=== PATIENT | female | born 1955 | race Caucasian/White ===

== ENCOUNTER → 2025-03-21 | Outpatient (CLI) | payer MEDICARE, OTHER, SELFPAY ==
--- NOTE | 2025-03-21 07:38 | ECHOD_ITS ---
Reason For Study Reason For Study: MURMUR Procedure This was a 2D Doppler, Color Flow transthoracic echocardiogram. Exam performed in department. Left Ventricle Normal LV size. Left ventricular systolic function is normal. The left ventricular ejection fraction is 65 %. Stage 1 diastolic dysfunction. No regional wall motion abnormalities noted. Right Ventricle Normal RV size. Normal systolic function. Atria Normal left atrium. Normal right atrium. Patent foramen ovale. Hypermobile atrial septum. Mitral Valve Normal mitral valve. Tricuspid Valve Normal tricuspid valve. Aortic Valve Trisinus/trileaflet aortic valve. Mild focal aortic valve calcification. Great Vessels Normal aortic root. The pulmonary artery is normal size. Inferior vena cava collapse with respiration. Pericardium/Pleural No pericardial effusion. Medication 22 gauge I.V. with prn adaptor inserted into right arm. Performed a rapid injection of agitated mix of 9 cc saline and 1cc air to assess for atrial septal defect. MMode/2D Measurements & Calculations LVIDd: 5.3 cm IVSd: 1.0 cm Ao root diam: 3.4 cm LVIDs: 3.8 cm LVPWd: 1.0 cm RVDd: 3.3 cm FS: 29.2 % LAV(MOD-bp): 88.8 ml LVAd ap4: 33.9 cm2 SV(MOD-sp4): 78.1 ml LAV(MOD-bp) Indexed: 41.1 ml/m2 LVLd ap4: 8.0 cm SI(MOD-sp4): 36.2 ml/m2 LAV(MOD-sp2): 78.3 ml EDV(MOD-sp4): 116.9 ml LAV(MOD-sp4): 75.5 ml EDV(sp4-el): 122.3 ml LVAs ap4: 17.0 cm2 LVLs ap4: 6.4 cm ESV(MOD-sp4): 38.8 ml ESV(sp4-el): 38.5 ml EF(MOD-sp4): 66.8 % EF(sp4-el): 68.5 % SV(sp4-el): 83.8 ml LA A4 area: 21.3 cm2 LA dimension(2D): 4.0 cm RA A4 area: 11.9 cm2 TAPSE: 2.5 cm Time Measurements MV dec time: 0.22 sec Doppler Measurements & Calculations MV E max mark: 80.6 cm/sec Lat Peak E' Mark: 10.3 cm/sec Med Peak E' Mark: 7.6 cm/sec MV A max mark: 87.8 cm/sec E/E' lat: 7.8 E/E' med: 10.6 MV E/A: 0.92 MV V2 max: 104.8 cm/sec MV P1/2t max mark: 92.2 cm/sec Ao V2 max: 166.5 cm/sec MV max P.4 mmHg MV P1/2t: 53.0 msec Ao max P.1 mmHg MV V2 mean: 55.9 cm/sec Ao V2 mean: 118.4 cm/sec MV mean P.5 mmHg MV dec slope: 509.7 cm/sec2 Ao mean P.3 mmHg MV V2 VTI: 29.1 cm MVA(P1/2t): 4.2 cm2 Ao V2 VTI: 42.6 cm AV (velocity ratio): 0.46 LV V1 max: 79.7 cm/sec PA V2 max: 112.8 cm/sec PI end-d mark: 107.7 cm/sec LV V1 max P.5 mmHg PA V2 mean: 78.6 cm/sec LV V1 mean P.5 mmHg PA V2 VTI: 27.2 cm PI dec slope: 149.0 cm/sec2 LV V1 mean: 58.4 cm/sec LV V1 VTI: 19.6 cm TR max mark: 229.6 cm/sec TR max P.1 mmHg ECHO/Echo Complete Interpretation Summary Normal LV size. Left ventricular systolic function is normal. The left ventricular ejection fraction is 65 %. Stage 1 diastolic dysfunction. Patent foramen ovale. Mild focal aortic valve calcification. Hypermobile atrial septum. Ordering Physician: Lorelei Cohen Referring Physician: Lorelei Cohen Performed By: Shauna Dougherty RDCS, RVT
--- OUTSIDE RECORDS SUMMARY | 2025-03-21 07:45 | XMS RPT_ITS | CCD ---
Author Organization [facility] Care Team Providers Care Supervisor [employer]dered [employer] Name Role Phone CARMEN JON DO Primary Care Physician [phone] Guy PT, Natali Unavailable Unavailable DONTRELL ARANDA, CARMEN Primary Care Unavailable DONTRELL ARANDA, CARMEN Attending Unavailable CARMEN JON DO Attending Unavailable CARMEN JON DO Primary Care Unavailable ELISEO ARANDA, DR STRATTON Primary Care Physician [phone] ELISEO ARANDA, DR STRATTON Attending Unavailable ELISEO ARANDA, DR STRATTON Primary Care Unavailable Viral Gomes Attending Unavailable Viral Gomes Primary Care Unavailable Viral Gomes Referring Unavailable Viral Gomes Attending Unavailable Viral Gomes Primary Care Unavailable Allergies Allergy Classification Reported Allergen(s) Allergy Type Date of Onset Reaction(s) Facility (2 sources) Adhesive Tape Allergy to substance Eruption of skin (disorder) [facility] Medications Current Medications Medication Drug Class(es) Dates Sig (Normalized) Sig (Original) acetaminophen 500 mg oral tablet (2 sources) Start: 05-26-2021 End: 06-09-2021 take 1 tablet by mouth once daily acetaminophen 500 mg oral tablet Dose : 1,000 mg = 2 tab(s), Oral, TID, PRN as needed for pain, not to exceed 3000 mg/day, # 100 tab(s), 0 Refill(s), 06/09/21 6:44:00 EDT, [facility] 164, cm, 05/25/21 14:48:00 EDT, Height, kg, 05/25/21 14:48:00 EDT, Dosing Weight Start Date: 05/26/21 Stop Date: 06/09/21 Status: Ordered Acidophilus Probiotic Blend oral capsule (4 sources) Start: 02-15-2019 take 1 capsule by mouth once daily Acidophilus Probiotic Blend oral capsule Dose = 1 cap(s), Oral, qDay, 0 Refill(s) Start Date: 02/15/19 Status: Ordered Repeat number: 1 Start: 02-15-2019 take 1 capsule by [facility] once daily Acidophilus Probiotic Blend oral capsule Dose = 1 cap(s), Oral, qDay, 0 Refill(s) Start Date: 02/15/19 Status: Ordered albuterol MDI (90 mcg/inh) CFC free inhalation aerosol (1 source) Start: 08-15-2024 take 2 puff(s) by inhalation every four hours as needed for wheezing albuterol MDI (90 mcg/inh) CFC free inhalation aerosol 2 puff(s), Inhalation, q4h, PRN as needed for wheezing, # 8.5 gram(s), 0 Refill(s), Pharmacy: [facility]/pharmacy #[id number], Acute bronchitis, 164.5, cm, 08/15/24 13:36:00 EST, Height, kg, 08/15/24 13:36:00 EST, Dosing Weight Start Date: 08/15/24 Status: Ordered Quantity: 8.5 Unit: g Repeat number: 1 Indications: Acute bronchitis, unspecified; ascorbic acid 500 mg oral tablet (2 sources) Vitamin C Start: 02-15-2019 Vitamin C 500 mg oral tablet Dose : 500 mg = 1 tab(s), Oral, qDay, # 30 tab(s), 0 Refill(s) Start Date: 02/15/19 Status: Ordered aspirin 81 mg oral tablet (4 sources) Platelet Aggregation Inhibitor, Nonsteroidal Anti-inflammatory Drug Start: 05-26-2021 take 1 tablet by mouth twice daily at mealtime aspirin Dose : 81 mg = 1 tab(s), Oral, BIDM, Take 81 mg aspirin twice daily with food for 4 weeks postoperatively for DVT prophylaxis, 0 Refill(s) Start Date: 05/26/21 Status: Ordered Cranberry preparation (1 source) Non-Standardized Food Allergenic Extract, Non-Standardized Plant Allergenic Extract Start: 02-06-2025 take 1 capsule by mouth once daily cranberry oral capsule Dose = 2 cap(s), Oral, Daily, 0 Refill(s) Start Date: 02/06/25 Status: Ordered Repeat number: 1 famotidine 20 mg oral tablet (4 sources) Histamine-2 Receptor Antagonist Start: 05-26-2021 Pepcid 20 mg oral tablet Dose : 20 mg = 1 tab(s), Oral, qDay, # 30 tab(s), 0 Refill(s), Pharmacy: [address] 164, cm, 05/25/21 14:48:00 EDT, Height, kg, 05/25/21 14:48:00 EDT, Dosing Weight Start Date: 05/26/21 Status: Ordered Fish Oils (6 sources) Start: 05-26-2020 Fish Oil 1000 mg oral capsule Dose : 1,000 mg = 1 cap(s), Oral, qDay, # 90 cap(s), 0 Refill(s) Start Date: 05/26/20 Status: Ordered Quantity: 90.0 Unit: cap(s) Repeat number: 1 Start: 05-26-2020 Fish Oil 1000 mg oral capsule Dose : 1,000 mg = 1 cap(s), Oral, qDay, # 90 cap(s), 0 Refill(s) Start Date: 05/26/20 Status: Ordered lactobacillus acidophilus [id number] unt oral capsule (2 sources) Start: 02-15-2019 take 1 capsule by mouth once daily Acidophilus Probiotic Blend oral capsule Dose = 1 cap(s), Oral, qDay, 0 Refill(s) Start Date: 02/15/19 Status: Ordered magnesium oxide 250 mg oral tablet (1 source) Start: 02-06-2025 Magnesium 250 mg tablet See Instructions, PRN Restlessness, tab(s) mg Oral, 0 Refill(s) Start Date: 02/06/25 Status: Ordered Repeat number: 1 meloxicam 7.5 mg oral tablet (2 sources) Nonsteroidal Anti-inflammatory Drug Start: 05-26-2021 Mobic 7.5 mg oral tablet Dose : 7.5 mg = 1 tab(s), Oral, BIDM, Do not take any other nonsteroidal anti-inflammatorie s while on meloxicam/Mobic, # 60 tab(s), 0 Refill(s), Pharmacy: [address] 164, cm, 05/25/21 14:48:00 EDT, Height, kg, 05/25/21 14:48:00 EDT, Dosi... Start Date: 05/26/21 Status: Ordered Multivitamin preparation (6 sources) Start: 02-15-2019 take 1 tablet by mouth once daily Multivitamin Dose = 1 tab(s), Oral, Daily, 0 Refill(s) Start Date: 02/15/19 Status: Ordered Repeat number: 1 Start: 02-15-2019 take 1 tablet by marta th once daily Multivitamin Dose = 1 tab(s), Oral, Daily, 0 Refill(s) Start Date: 02/15/19 Status: Ordered niacin 500 mg oral capsule (6 sources) Nicotinic Acid Start: 02-15-2019 niacin 500 mg oral capsule Dose : 500 mg = 1 cap(s), Oral, qDay, 0 Refill(s) Start Date: 02/15/19 Status: Ordered Repeat number: 1 oxyCODONE hydrochloride 5 mg oral tablet (2 sources) Opioid Agonist Start: 05-26-2021 End: 06-02-2021 take 1-2 tablets by mouth every four hours as needed for pain oxyCODONE 5 mg oral tablet ( IMMEDIATE release ) See Instructions, PRN as needed for pain, 1-2 tab(s) Oral q4h, # 60 tab(s), 0 Refill(s), 06/02/21 6:45:00 EDT, [facility]: [facility], Status post total left knee replacement, 164, cm, 05/25/21 14:48:00 EDT, Height, 116.7, kg, 05/25/21 14:4... Start Date: 05/26/21 Stop Date: 06/02/21 Status: Ordered 72 hr scopolamine 0.0139 mg/hr transdermal system (1 source) Anticholinergic Start: 02-06-2025 scopolamine 1 mg/72 hr transdermal film, extended release Apply 1 patch(es), Topical, q72h, PRN as needed for motion sickness, # 4 EA, 0 Refill(s), Pharmacy: [facility]/pharmacy #[id number], 163.7, cm, 02/06/25 8:54:00 EDT, Height, 114, kg, 02/06/25 8:54:00 EDT, Dosing Weight Start Date: 02/06/25 Status: Ordered Quantity: 4.0 Unit: EA Repeat number: 1 sennosides, RESIDENTIAL (1 source) Start: 05-26-2021 End: 05-28-2021 take 1 tablet by mouth twice daily Senokot S 50 mg-8.6 mg oral tablet Dose = 2 tab(s), Oral, BID, Take until first bowel movement, then as needed, # 14 tab(s), 0 Refill(s), Pharmacy: [address], 164, cm, 05/25/21 14:48:00 EDT, Height, kg, 05/25/21 14:48:00 EDT, Dosing Weight Start Date: 05/26/21 Stop Date: 05/28/21 Status: Ordered [place] Low Dose Aspirin (1 source) Start: 12-11-2024 take 1 mg by mouth once daily [place] Low Dose Aspirin mg =, Oral, qDay, OTC, 0 Refill(s) Start Date: 12/11/24 Status: Ordered Repeat number: 1 turmeric extract 500 mg oral capsule (1 source) Start: 02-06-2025 turmeric 500 m g oral capsule Dose : 500 mg = 1 cap(s), Oral, Daily, 0 Refill(s) Start Date: 02/06/25 Status: Ordered Repeat number: 1 Tylenol PM Extra Strength oral tablet (2 sources) Start: 05-10-2021 take 1 tablet by mouth once daily at bedtime as needed for pain Tylenol PM Extra Strength oral tablet Dose = 1 tab(s), Oral, qHS, PRN as needed for pain, # 10 tab(s), 0 Refill(s) Start Date: 05/10/21 Status: Ordered Vitamin C 500 mg oral tablet (4 sources) Start: 02-15-2019 Vitamin C 500 mg oral tablet Dose : 500 mg = 1 tab(s), Oral, qDay, # 30 tab(s), 0 Refill(s) Start Date: 02/15/19 Status: Ordered Quantity: 30.0 Unit: tab(s) Repeat number: 1 Start: 02-15-2019 Vitamin C 500 mg oral tablet Dose : 500 mg = 1 tab(s), Oral, qDay, # 30 tab(s), 0 Refill(s) Start Date: 02/15/19 Status: Ordered Vitamin D3 (6 sources) Start: 02-15-2019 Vitamin D3 Dos e : 1,000 unit(s) = 1 tab(s), Oral, Daily, 0 Refill(s) Start Date: 02/15/19 Status: Ordered Repeat number: 1 Start: 02-15-2019 Vitamin D3 Dos e : 1,000 unit(s) = 1 tab(s), Oral, Daily, 0 Refill(s) Start Date: 02/15/19 Status: Ordered Problems Problem Classification Problem Date Documented Date Episodic/Chronic Acute posthemorrhagic anemia (1 source) Acute posthemorrhagic anemia; Translations: [Acute posthemorrhagic anemia] Onset: 05-26-2021 Episodic Diseases of white blood cells (1 source) Leukocytosis; Translations: [Elevated white blood cell count, unspecified] Onset: 05-26-2021 Chronic Disorders of lipid metabolism (2 sources) Hyperlipidemia; Translations: [Hyperlipidemia, unspecified] Onset: 03-17-2025 02-06-2025 Chronic Disorders of teeth and jaw (2 sources) Jaw pain 06-20-2022 Episodic Heart valve disorders (5 sources) Heart murmur; Translations: [Cardiac murmur, unspecified] Onset: 03-18-2025 06-21-2022 Episodic Nonspecific chest pain (2 sources) Chest discomfort 06-20-2022 Episodic Osteoarthritis (13 sources) Osteoarthritis of knee; Translations: [Unilateral primary osteoarthritis, left knee] Onset: 05-25-2021 Chronic Other circulatory disease (4 sources) Elevated blood-pressure reading without diagnosis of hypertension 06-21-2022 Episodic Other nutritional; endocrine; and metabolic disorders (7 sources) Body mass index 40+ - severely obese; Translations: [Body mass index (BMI) 40.0-44.9, adult] Onset: 05-25-2021 Chronic Other nutritional; endocrine; and metabolic disorders (4 sources) Morbid obesity 10-29-2019 Chronic Other screening for suspected conditions (not mental disorders or infectious disease) (3 sources) Encounter for screening mammogram for malignant neoplasm of breast; Translations: [Encounter for screening for cardiovascular disorders] Onset: 12-27-2023 Episodic Residual codes; unclassified (11 sources) Obstructive sleep apnea syndrome; Translations: [Obstructive sleep apnea (adult) (pediatric)] Onset: 05-25-2021 Chronic Residual codes; unclassified (2 sources) Postmenopausal state 12-11-2023 Episodic Unclassified (16 sources) Patient encounter status 05-12-2021 Results Test Name Value Interpretation Reference Range Facility .Auto Diffon 02-17-2025 Basophil, Absolute 0.1 10 3/mcL Normal 0.0-0.3 [facility] Comment on above: Performed By: #### C MP, TSH, GFR, ADIFF, CBC, LIPID, ANEU #### [address] [address] Basophils/100 WBC (Bld) 1.0 % Normal 0.0-2.5 [facility] Comment on above: Performed By: #### C MP, TSH, GFR, ADIFF, CBC, LIPID, ANEU #### [address] [address] Eosinophil, Absolute 0.2 10 3/mcL Normal 0.0-0.7 [facility] Comment on above: Performed By: #### C MP, TSH, GFR, ADIFF, CBC, LIPID, ANEU #### [address] [address] Eosinophils/100 WBC (Bld) 3.5 % Normal 0.0-6.0 [facility] Comment on above: Performed By: #### C MP, TSH, GFR, ADIFF, CBC, LIPID, ANEU #### [address] [address] Lymphocyte, Absolute 1.9 10 3/mcL Normal 0.9-4.3 [facility] Comment on above: Performed By: #### C MP, TSH, GFR, ADIFF, CBC, LIPID, ANEU #### [address] [address] Lymphocytes/100 WBC (Bld) 32.6 % Normal 20.0-40.0 [facility] Comment on above: Performed By: #### C MP, TSH, GFR, ADIFF, CBC, LIPID, ANEU #### [address] [address] Monocyte, Absolute 0.6 10 3/mcL Normal 0.1-1.4 [facility] Comment on above: Performed By: #### C MP, TSH, GFR, ADIFF, CBC, LIPID, ANEU #### [address] [address] Monocytes/100 WBC (Bld) 10.1 % Normal 2.0-13.0 [facility] Comment on above: Performed By: #### C MP, TSH, GFR, ADIFF, CBC, LIPID, ANEU #### [address] [address] Neutrophils/100 WBC (Bld) 52.8 % Normal 50.0-75.0 [facility] Comment on above: Performed By: #### C MP, TSH, GFR, ADIFF, CBC, LIPID, ANEU #### [address] [address] .GFRon 02-17-2025 Estimated Glomerular Filtration Rate 96 ml/min/1.73sqm Normal [facility] Comment on above: Result Comment: Stages of Chronic Kidney Disease (CKD) Stage Description eGFR(ml/min/1.73 sq.m.) CKD 1 Normal kidney function or >=90 normal kindney function with possible kidney damage (ex. Proteinuria) CKD 2 Kidney damage with mild loss 60-89 of kidney function CKD 3a Mild to moderate loss of kidney 45-59 function CKD 3b Moderate to severe loss of 30-44 of kindey function CKD 4 Severe loss of kidney function 15-29 CKD 5 Kidney failure <15 Note: (go live 2024) the eGFR calculation was updated to the 2020 CKD-EPI creatinine equation without a race factor to calculate the eGFR results. Performed By: #### C MP, TSH, GFR, ADIFF, CBC, LIPID, ANEU #### [address] [address] .NEUABSon 02-17-2025 Neutrophil, Absolute 3.0 10 3/mcL Normal 2.3-8.1 [facility] Comment on above: Performed By: #### C MP, TSH, GFR, ADIFF, CBC, LIPID, ANEU #### [address] [address] CBCon 02-17-2025 Erythrocyte distribution width (RBC) [Ratio] 12.9 % Normal 11.5-15.5 [facility] Comment on above: Performed By: #### C MP, TSH, GFR, ADIFF, CBC, LIPID, ANEU #### [address] [address] Hematocrit (Bld) [Volume fraction] 41.3 % Normal 34.0-46.0 [facility] Comment on above: Performed By: #### C MP, TSH, GFR, ADIFF, CBC, LIPID, ANEU #### [address] [address] Hgb 14.1 G/dL Normal 12.0-16.0 [facility] Comment on above: Performed By: #### C MP, TSH, GFR, ADIFF, CBC, LIPID, ANEU #### [address] [address] MCH (RBC) [Entitic mass] 31.0 pg Normal 27.0-33.0 [facility] Comment on above: Performed By: #### C MP, TSH, GFR, ADIFF, CBC, LIPID, ANEU #### [address] [address] MCHC 34.1 G/dL Normal 32.0-36.0 [facility] Comment on above: Performed By: #### C MP, TSH, GFR, ADIFF, CBC, LIPID, ANEU #### [address] [address] MCV (RBC) [Entitic vol] 90.9 fL Normal 80.0-99.0 [facility] Comment on above: Performed By: #### C MP, TSH, GFR, ADIFF, CBC, LIPID, ANEU #### [place] [id number] Platelet 302 10 3/mcL Normal 150-450 [facility] Comment on above: Performed By: #### C MP, TSH, GFR, ADIFF, CBC, LIPID, ANEU #### [address] [address] Platelet mean volume (Bld) [Entitic vol] 8.1 fL Normal 6.6-10.5 [facility] Comment on above: Performed By: #### C MP, TSH, GFR, ADIFF, CBC, LIPID, ANEU #### [address] [address] RBC 4.55 10 6/mcL Normal 4.10-5.30 [facility] Comment on above: Performed By: #### C MP, TSH, GFR, ADIFF, CBC, LIPID, ANEU #### [address] [address] WBC 5.7 10 3/mcL Normal 4.5-10.8 [facility] Comment on above: Performed By: #### C MP, TSH, GFR, ADIFF, CBC, LIPID, ANEU #### [address] [address] CMPon 02-17-2025 Albumin Level 3.4 G/dL Normal 3.4-4.8 [facility] Comment on above: Performed By: #### C MP, TSH, GFR, ADIFF, CBC, LIPID, ANEU #### [address] [address] Albumin/Globulin [Mass ratio] 0.8 {ratio} Low 1.1-2.5 [facility] Comment on above: Performed By: #### C MP, TSH, GFR, ADIFF, CBC, LIPID, ANEU #### [address] [address] ALP [Catalytic activity/Vol] 85 U/L Normal 40-135 [facility] Comment on above: Performed By: #### C MP, TSH, GFR, ADIFF, CBC, LIPID, ANEU #### [address] [address] ALT [Catalytic activity/Vol] 25 U/L Normal 14-59 [facility] Comment on above: Performed By: #### C MP, TSH, GFR, ADIFF, CBC, LIPID, ANEU #### [address] [address] AST [Catalytic activity/Vol] 17 U/L Normal 10-40 [facility] Comment on above: Performed By: #### C MP, TSH, GFR, ADIFF, CBC, LIPID, ANEU #### [address] [address] Bili Total 0.8 mg/dL Normal 0.2-1.0 [facility] Comment on above: Result Comment: Use of this assay is not recommended for patients undergoing treatment with eltrombopag due to the potential for falsely elevated results. Performed By: #### C MP, TSH, GFR, ADIFF, CBC, LIPID, ANEU #### [place] [id number] BUN/Creatinine Ratio 17 ratio Normal 7-27 [facility] Comment on above: Performed By: #### C MP, TSH, GFR, ADIFF, CBC, LIPID, ANEU #### [address] [address] Calcium [Mass/Vol] 9.3 mg/dL Normal 8.4-10.2 [facility] Comment on above: Performed By: #### C MP, TSH, GFR, ADIFF, CBC, LIPID, ANEU #### [address] [address] Chloride [Moles/Vol] 105 mmol/L Normal 98-107 [facility] Comment on above: Performed By: #### C MP, TSH, GFR, ADIFF, CBC, LIPID, ANEU #### [address] [address] CO2 [Moles/Vol] 29 mmol/L Normal 23-31 [facility] Comment on above: Performed By: #### C MP, TSH, GFR, ADIFF, CBC, LIPID, ANEU #### [address] [address] Creatinine [Mass/Vol] 0.65 mg/dL Normal 0.51-0.95 [facility] Comment on above: Performed By: #### C MP, TSH, GFR, ADIFF, CBC, LIPID, ANEU #### [address] [address] Electrolyte Balance 8.0 mEq/L Normal 4.0-15.0 [facility] Comment on above: Performed By: #### C MP, TSH, GFR, ADIFF, CBC, LIPID, ANEU #### [address] [address] Globulin 4.4 G/dL Normal 2.7-4.4 [facility] Comment on above: Performed By: #### C MP, TSH, GFR, ADIFF, CBC, LIPID, ANEU #### [address] [address] Glucose [Mass/Vol] 122 mg/dL High 80-115 [facility] Comment on above: Performed By: #### C MP, TSH, GFR, ADIFF, CBC, LIPID, ANEU #### [address] [address] Potassium [Moles/Vol] 4.1 mmol/L Normal 3.5-5.1 [facility] Comment on above: Performed By: #### C MP, TSH, GFR, ADIFF, CBC, LIPID, ANEU #### [address] [address] Sodium [Moles/Vol] 142 mmol/L Normal 136-145 [facility] Comment on above: Performed By: #### C MP, TSH, GFR, ADIFF, CBC, LIPID, ANEU #### [address] [address] Total Protein 7.8 G/dL Normal 6.4-8.2 [facility] Comment on above: Performed By: #### C MP, TSH, GFR, ADIFF, CBC, LIPID, ANEU #### [address] [address] Urea nitrogen [Mass/Vol] 11 mg/dL Normal 7-18 [facility] Comment on above: Performed By: #### C MP, TSH, GFR, ADIFF, CBC, LIPID, ANEU #### [facility] [place] [address], [place] [address] LABORATORYOrdered By: SYSTEM SYSTEM on 02-17-2025 Albumin BCP dye [Mass/Vol] 3.4 G/dL Normal 3.4 - 4.8 G/dL AO ADM SS Albumin/Globulin [Mass ratio] 0.8 {ratio} Low 1.1 - 2.5 ratio AO ADM SS ALP [Catalytic activity/Vol] 85 U/L Normal 40 - 135 U/L AO ADM SS ALT With P-5'-P [Catalytic activity/Vol] 25 U/L Normal 14 - 59 U/L AO ADM SS AST With P-5'-P [Catalytic activity/Vol] 17 U/L Normal 10 - 40 U/L AO ADM SS Basophils (Bld) [#/Vol] 0.1 103/mcL Normal 0.0 - 0.3 10^3/mcL AO Workflow SS Basophils/100 WBC (Bld) 1.0 % Normal 0.0 - 2.5 % AO Workflow SS Bilirubin [Mass/Vol] 0.8 mg/dL Normal 0.2 - 1 .0 mg/dL AO ADM SS Comment on above: Interpretive Data: U se of this assay is not recommended for patients undergoing treatment with eltrombopag due to the potential for falsely elevated results. Calcium [Mass/Vol] 9.3 mg/dL Normal 8.4 - 10. 2 mg/dL AO ADM SS Chloride [Moles/Vol] 105 mmol/L Normal 98 - 10 7 mmol/L AO ADM SS CO2 [Moles/Vol] 29 mmol/L Normal 23 - 31 mmol/L AO ADM SS Creatinine [Mass/Vol] 0.65 mg/dL Normal 0.51 - 0.95 mg/dL AO ADM SS Electrolyte Balance 8.0 mEq/L Normal 4.0 - 15 .0 mEq/L AO ADM SS Eosinophil, Absolute 0.2 103/mcL Normal 0.0 - 0 .7 10^3/mcL AO Workflow SS Eosinophils/100 WBC (Bld) 3.5 % Normal 0.0 - 6.0 % AO Workflow SS Erythrocyte distribution width (RBC) [Ratio] 12.9 % Normal 11.5 - 15.5 % AO Workflow SS Estimated Glomerular Filtration Rate 96 ml/min/1.73sqm Invalid Interpretation Code AO Chemistry S Comment on above: Interpretive Data: Stages of Chronic Kidney Disease (CKD) Stage Description eGFR(ml/min/1.73 sq.m.) CKD 1 Normal kidney function or >=90 normal kindney function with possible kidney damage (ex. Proteinuria) CKD 2 Kidney damage with mild loss 60-89 of kidney function CKD 3a Mild to moderate loss of kidney 45-59 function CKD 3b Moderate to severe loss of 30-44 of kindey function CKD 4 Severe loss of kidney function 15-29 CKD 5 Kidney failure <15 Note: (go live 2024) the eGFR calculation was updated to the 2020 CKD-EPI creatinine equation without a race factor to calculate the eGFR results. Globulin 4.4 G/dL Normal 2.7 - 4.4 G/dL AO ADM SS Glucose [Mass/Vol] 122 mg/dL High 80 - 115 mg/dL AO ADM SS Hematocrit (Bld) [Volume fraction] 41.3 % Normal 34.0 - 46.0 % AO Workflow SS Hemoglobin (Bld) [Mass/Vol] 14.1 G/dL Normal 12.0 - 16.0 G/dL AO Workflow SS Lymphocytes (Bld) [#/Vol] 1.9 103/mcL Normal 0.9 - 4.3 10^3/mcL AO Workflow SS Lymphocytes/100 WBC (Bld) 32.6 % Normal 20.0 - 40.0 % AO Workflow SS MCH (RBC) [Entitic mass] 31.0 pg Normal 27.0 - 33.0 pg AO Workflow SS MCHC 34.1 G/dL Normal 32.0 - 36.0 G/dL AO Workflow SS MCV (RBC) [Entitic vol] 90.9 fL Normal 80.0 - 99.0 fL AO Workflow SS Monocytes (Bld) [#/Vol] 0.6 103/mcL Normal 0.1 - 1.4 10^3/mcL AO Workflow SS Monocytes/100 WBC (Bld) 10.1 % Normal 2.0 - 13.0 % AO Workflow SS Neutrophils (Bld) [#/Vol] 3.0 103/mcL Normal 2.3 - 8.1 10^3/mcL AO Workflow SS Neutrophils/100 WBC (Bld) 52.8 % Normal 50.0 - 75.0 % AO Workflow SS Platelet mean volume (Bld) [Entitic vol] 8.1 fL Normal 6.6 - 10.5 fL AO Workflow SS Platelets (Bld) [#/Vol] 302 103/mcL Normal 150 - 450 10^3/mcL AO Workflow SS Potassium [Moles/Vol] 4.1 mmol/L Normal 3.5 - 5.1 mmol/L AO ADM SS Protein [Mass/Vol] 7.8 G/dL Normal 6.4 - 8.2 G/dL AO ADM SS RBC (Bld) [#/Vol] 4.55 106/mcL Normal 4.10 - 5.3 0 10^6/mcL AO Workflow SS Sodium [Moles/Vol] 142 mmol/L Normal 136 - 145 mmol/L AO ADM SS TSH Qn 2.15 m[IU]/L Normal 0.36 - 3.74 mcIU/mL AO ADM SS Urea nitrogen [Mass/Vol] 11 mg/dL Normal 7 - 18 mg/dL AO ADM SS Urea nitrogen/Creatinine [Mass ratio] 17 ratio Normal 7 - 27 ratio AO ADM SS WBC (Bld) [#/Vol] 5.7 103/mcL Normal 4.5 - 10.8 10^3/mcL AO Workflow SS LABORATORYOrdered By: Edda Chavez on 02-17-2025 Cholesterol [Mass/Vol] 237 mg/dL High 0 - 200 mg/dL AO ADM SS Comment on above: Interpretive Data: C holesterol Reference Interval: Less than 200 Desirable 200-239 Borderline high risk 240 and above High risk Cholesterol in HDL [Mass/Vol] 39 mg/dL Low 40 - 60 mg/dL AO ADM SS Cholesterol in LDL [Mass/Vol] 128 mg/dL Normal 0 - 130 mg/dL AO ADM SS Triglyceride [Mass/Vol] 352 mg/dL High 0 - 150 mg/dL AO ADM SS Comment on above: Interpretive Data: T riglyceride Reference Interval: Less than 150 Normal 150-199 Borderline high risk 200-499 High risk 500 or higher Very high risk LIPIDon 02-17-2025 Cholesterol [Mass/Vol] 237 mg/dL High 0-200 [facility] Comment on above: Result Comment: Chol esterol Reference Interval: Less than 200 Desirable 200-239 Borderline high risk 240 and above High risk Performed By: #### C MP, TSH, GFR, ADIFF, CBC, LIPID, ANEU #### [facility] [address], [place] [address] Cholesterol in HDL [Mass/Vol] 39 mg/dL Low 40-60 [facility] Comment on above: Performed By: #### C MP, TSH, GFR, ADIFF, CBC, LIPID, ANEU #### [address] [address] Cholesterol in LDL [Mass/Vol] 128 mg/dL Normal 0-130 [facility] Comment on above: Performed By: #### C MP, TSH, GFR, ADIFF, CBC, LIPID, ANEU #### [id number] [place], [place] [address] Triglyceride [Mass/Vol] 352 mg/dL High 0-150 [facility] Comment on above: Result Comment: Trig lyceride Reference Interval: Less than 150 Normal 150-199 Borderline high risk 200-499 High risk 500 or higher Very high risk Performed By: #### C MP, TSH, GFR, ADIFF, CBC, LIPID, ANEU #### [address] [address] TSHon 02-17-2025 TSH Qn 2.15 m[IU]/L Normal 0.36-3.74 [facility] Comment on above: Performed By: #### C MP, TSH, GFR, ADIFF, CBC, LIPID, ANEU #### [address] [address] BD BONE DENSITY DEXA AXIAL S KELETON 12-28-2023 BD BONE DENSITY DEXA AXIAL SKELETON ORIGINAL EXAMINATION: BONE DENSITOMETRY 024 2:17 pm TECHNIQUE: Dual energy bone densitometry lumbar spine and left hip. COMPARISON: None HISTORY: Reason for Exam: Osteoporosis Screening FINDINGS: L1-L4: T score= -0.2 BMD= 1.030 g/cm2 Left femoral neck: T score= -0.4 BMD= 0.808 g/cm2 Left hip: T score= -0.9 BMD= 0.832 g/cm2 FRAX score: Not calculated. The OF f/k/a NOF recommends that FDA-approved medical therapies be considered in post-menopausal women and men age >/= 50 years with a: * Hip or vertebral fracture, or * T-score of /= 20% for major osteoporotic fractures or * >/= 3% for hip fractures All treatment decisions require clinical judgement and consideration of individual patient factors, including patient preferences, comorbidities, previous drug use, risk factors not captured in the FRAX registered model (e.g., frailty, falls, vitamin D deficiency, increased bone turnover, interval significant decline in bone density) and possible under- or over-estimation of fracture risk by FRAX. IMPRESSION: Normal bone mineral density. Interpreted by: Jolie Mckinnon MD Preliminary Report By: Jolie Mckinnon MD Electronically signed By Jolie Mckinnon MD Dictated Date: 12/28/2023 12:13:08 PM Prelim Date: 12/28/2023 12:15:28 PM Sign Date: 12/28/2023 12:15:28 PM Ordering Provider: CARMEN JON [facility] ([place]) MA MAMMOGRAM SCREENING BILAT ERAL W/TOMOon 12-27-2023 MA MAMMOGRAM SCREENING BILATERAL W/ELVIS ORIGINAL FROM: [address] [address] PROCEDURE FOR: ABIOLA ARMENDARIZ [address] [place] [address] Home: PID#: [id number] Exam#: [id number] : 1955 Age: 68 TO: CARMEN JON DO [address] [place] [address] Fax: NO FAX EXAMINATION: SCREENING DIGITAL BILATERAL MAMMOGRAM WITH TOMOSYNTHESIS, 12/27/2023 1:55 pm TECHNIQUE: Screening mammography of the bilateral breasts was performed with tomosynthesis. 2D standard and 3D tomosynthesis combination imaging performed through both breasts in the MLO and CC projection. Computer aided detection was utilized in the interpretation of this exam. COMPARISON: 08/11/2020 HISTORY: Breast cancer screening. FINDINGS: BREAST DENSITY: Scattered fibroglandular tissue There are benign appearing calcifications in both breasts. There are no significant masses or calcifications. IMPRESSION: No mammographic evidence of malignancy. Continued screening with annual mammograms is recommended. Crystal Christiezick risk calculations, generated with the history provided, report this patient's 10 year risk and lifetime risk for developing breast cancer at 3.1% and 6.1%, respectively. Based on this assessment tool, if the patient's calculated lifetime risk is below 20%, then the patient is considered at average risk for developing breast cancer. If the patient's calculated lifetime risk is at or above 20%, then the patient is considered high risk for developing breast cancer and may be a candidate for supplemental breast MRI screening in addition to annual mammographic screening per the [employer]. BIRADS: MAMMOGRAM BI-RADS: 2: Benign finding RECALL: 1 year screening RECALL TYPE: mammo LETTER SENT: Normal BI-RADS 1 and 2 Interpreted by: Kofi Ospina MD Preliminary Report By: Kofi Ospina MD Electronically signed By Kofi Ospina MD Dictated Date: 12/27/2023 6:24:37 PM Prelim Date: 12/27/2023 6:40:53 PM Sign Date: 12/27/2023 6:40:53 PM Ordering Provider: CARMEN JON [employer]: BRIAN DONOHUE RT(R)(M)(CT) letter sent: Normal BI-RADS 1 and 2 Mammogram BI-RADS: 2 Benign Normal [facility] ([place]) .Auto Diffon 12-12-2023 Basophil, Absolute 0.0 10 3/mcL Normal 0.0-0.2 [facility] ([place]) Comment on above: Performed By: #### G FR, LIPID, CMP, CBC, ADIFF, ANEU #### [address] [address] Basophils/100 WBC (Bld) 0.7 % Normal 0.0-2.5 [facility] ([place]) Comment on above: Performed By: #### G FR, LIPID, CMP, CBC, ADIFF, ANEU #### [address] [address] Eosinophil, Absolute 0.1 10 3/mcL Normal 0.0-0.4 [facility] ([place]) Comment on above: Performed By: #### G FR, LIPID, CMP, CBC, ADIFF, ANEU #### [address] [address] Eosinophils/100 WBC (Bld) 2.0 % Normal 0.0-7.0 [facility] ([place]) Comment on above: Performed By: #### G FR, LIPID, CMP, CBC, ADIFF, ANEU #### [address] [address] Lymphocyte, Absolute 1.9 10 3/mcL Normal 0.8-3.9 [facility] ([place]) Comment on above: Performed By: #### G FR, LIPID, CMP, CBC, ADIFF, ANEU #### [address] [address] Lymphocytes/100 WBC (Bld) 29.6 % Normal 10.0-50.0 [facility] ([place]) Comment on above: Performed By: #### G FR, LIPID, CMP, CBC, ADIFF, ANEU #### [address] [address] Monocyte, Absolute 0.7 10 3/mcL Normal 0.2-1.0 [facility] ([place]) Comment on above: Performed By: #### G FR, LIPID, CMP, CBC, ADIFF, ANEU #### [address] [address] Monocytes/100 WBC (Bld) 10.3 % Normal 1.7-13.0 [facility] ([place]) Comment on above: Performed By: #### G FR, LIPID, CMP, CBC, ADIFF, ANEU #### [address] [address] Neutrophils/100 WBC (Bld) 57.4 % Normal 37.0-80.0 [facility] ([place]) Comment on above: Performed By: #### G FR, LIPID, CMP, CBC, ADIFF, ANEU #### [address] [address] .GFRon 12-12-2023 GFR 105 ml/min/1.73sqm Normal [facility] ([place]) Comment on above: Result Comment: GFR Population mean for , Non- Americans Ages 20-29 = 116 mL/min/1.73 sq.m. Ages 30-39 = 107 mL/min/1.73 sq.m. Ages 40-49 = 99 mL/min/1.73 sq.m. Ages 50-59 = 93 mL/min/1.73 sq.m. Ages 60-69 = 85 mL/min/1.73 sq.m. Ages 70+ = 75 mL/min/1.73 sq.m. Chronic Kidney Disease: Less than 60 mL/min/1.73 square meters End Stage Renal Disease: Less than 15 mL/min/1.73 square meters Performed By: #### G FR, LIPID, CMP, CBC, ADIFF, ANEU #### [address] [address] GFR Non- 87 ml/min/1.73sqm Normal [facility] ([place]) Comment on above: Result Comment: GFR Population mean for , Non- Americans Ages 20-29 = 116 mL/min/1.73 sq.m. Ages 30-39 = 107 mL/min/1.73 sq.m. Ages 40-49 = 99 mL/min/1.73 sq.m. Ages 50-59 = 93 mL/min/1.73 sq.m. Ages 60-69 = 85 mL/min/1.73 sq.m. Ages 70+ = 75 mL/min/1.73 sq.m. Chronic Kidney Disease: Less than 60 mL/min/1.73 square meters End Stage Renal Disease: Less than 15 mL/min/1.73 square meters Performed By: #### G FR, LIPID, CMP, CBC, ADIFF, ANEU #### [address] [address] .NEUABSon 12-12-2023 Neutrophil, Absolute 3.7 10 3/mcL Normal 2.9-6.2 [facility] ([place]) Comment on above: Performed By: #### G FR, LIPID, CMP, CBC, ADIFF, ANEU #### [address] [address] CBCon 12-12-2023 Erythrocyte distribution width (RBC) [Ratio] 13.3 % Normal 11.5-14.5 [facility] ([place]) Comment on above: Performed By: #### G FR, LIPID, CMP, CBC, ADIFF, ANEU #### [address] [address] Hematocrit (Bld) [Volume fraction] 40.4 % Normal 37.0-47.0 [facility] ([place]) Comment on above: Performed By: #### G FR, LIPID, CMP, CBC, ADIFF, ANEU #### [place] [address] Hgb 13.9 G/dL Normal 12.0-16.0 [facility] ([place]) Comment on above: Performed By: #### G FR, LIPID, CMP, CBC, ADIFF, ANEU #### [place] [address] MCH (RBC) [Entitic mass] 31.0 pg Normal 27.0-31.2 [facility] ([place]) Comment on above: Performed By: #### G FR, LIPID, CMP, CBC, ADIFF, ANEU #### [place] [address] MCHC 34.5 G/dL Normal 33.0-37.0 [facility] ([place]) Comment on above: Performed By: #### G FR, LIPID, CMP, CBC, ADIFF, ANEU #### [address] [address] MCV (RBC) [Entitic vol] 89.8 fL Normal 80.0-94.0 [facility] ([place]) Comment on above: Performed By: #### G FR, LIPID, CMP, CBC, ADIFF, ANEU #### [address] [address] Platelet 320 10 3/mcL Normal 130-400 [facility] ([place]) Comment on above: Performed By: #### G FR, LIPID, CMP, CBC, ADIFF, ANEU #### [address] [address] Platelet mean volume (Bld) [Entitic vol] 8.1 fL Normal 7.4-10.4 [facility] ([place]) Comment on above: Performed By: #### G FR, LIPID, CMP, CBC, ADIFF, ANEU #### [address] [address] RBC 4.50 10 6/mcL Normal 4.20-5.40 [facility] ([place]) Comment on above: Performed By: #### G FR, LIPID, CMP, CBC, ADIFF, ANEU #### [address] [address] WBC 6.4 10 3/mcL Normal 4.6-10.8 [facility] ([place]) Comment on above: Performed By: #### G FR, LIPID, CMP, CBC, ADIFF, ANEU #### [address] [address] CMPon 12-12-2023 Albumin Level 3.6 G/dL Normal 3.4-4.8 [facility] ([place]) Comment on above: Performed By: #### G FR, LIPID, CMP, CBC, ADIFF, ANEU #### [address] [address] Albumin/Globulin [Mass ratio] 1.0 {ratio} Low 1.1-2.5 [facility] ([place]) Comment on above: Performed By: #### G FR, LIPID, CMP, CBC, ADIFF, ANEU #### [address] [address] ALP [Catalytic activity/Vol] 98 U/L Normal 40-135 [facility] ([place]) Comment on above: Performed By: #### G FR, LIPID, CMP, CBC, ADIFF, ANEU #### [address] [address] ALT [Catalytic activity/Vol] 24 U/L Normal 14-59 [facility] ([place]) Comment on above: Performed By: #### G FR, LIPID, CMP, CBC, ADIFF, ANEU #### [address] [address] AST [Catalytic activity/Vol] 13 U/L Normal 10-40 [facility] ([place]) Comment on above: Performed By: #### G FR, LIPID, CMP, CBC, ADIFF, ANEU #### [address] [address] Bili Total 0.8 mg/dL Normal 0.2-1.0 [facility] ([place]) Comment on above: Result Comment: Use of this assay is not recommended for patients undergoing treatment with eltrombopag due to the potential for falsely elevated results. Performed By: #### G FR, LIPID, CMP, CBC, ADIFF, ANEU #### [address] [address] BUN/Creatinine Ratio 19 ratio Normal 7-27 [facility] ([place]) Comment on above: Performed By: #### G FR, LIPID, CMP, CBC, ADIFF, ANEU #### [address] [address] Calcium [Mass/Vol] 9.2 mg/dL Normal 8.4-10.2 [facility] ([place]) Comment on above: Performed By: #### G FR, LIPID, CMP, CBC, ADIFF, ANEU #### [address] [address] Chloride [Moles/Vol] 104 mmol/L Normal 98-107 [facility] ([place]) Comment on above: Performed By: #### G FR, LIPID, CMP, CBC, ADIFF, ANEU #### [address] [address] CO2 [Moles/Vol] 29 mmol/L Normal 23-31 [facility] ([place]) Comment on above: Performed By: #### G FR, LIPID, CMP, CBC, ADIFF, ANEU #### [address] [address] Creatinine [Mass/Vol] 0.68 mg/dL Normal 0.55-1.02 [facility] ([place]) Comment on above: Performed By: #### G FR, LIPID, CMP, CBC, ADIFF, ANEU #### [address] [address] Electrolyte Balance 8.0 mEq/L Normal 4.0-15.0 [facility] ([place]) Comment on above: Performed By: #### G FR, LIPID, CMP, CBC, ADIFF, ANEU #### [address] [address] Globulin 3.5 G/dL Normal [facility] ([place]) Comment on above: Performed By: #### G FR, LIPID, CMP, CBC, ADIFF, ANEU #### [address] [address] Glucose [Mass/Vol] 130 mg/dL High 80-115 [facility] ([place]) Comment on above: Performed By: #### G FR, LIPID, CMP, CBC, ADIFF, ANEU #### [address] [address] Potassium [Moles/Vol] 4.4 mmol/L Normal 3.5-5.1 [facility] ([place]) Comment on above: Performed By: #### G FR, LIPID, CMP, CBC, ADIFF, ANEU #### [address] [address] Sodium [Moles/Vol] 141 mmol/L Normal 136-145 [facility] ([place]) Comment on above: Performed By: #### G FR, LIPID, CMP, CBC, ADIFF, ANEU #### [address] [address] Total Protein 7.1 G/dL Normal 6.4-8.2 [facility] ([place]) Comment on above: Performed By: #### G FR, LIPID, CMP, CBC, ADIFF, ANEU #### [address] [address] Urea nitrogen [Mass/Vol] 13 mg/dL Normal 7-18 [facility] ([place]) Comment on above: Performed By: #### G FR, LIPID, CMP, CBC, ADIFF, ANEU #### [address] [address] LIPIDon 12-12-2023 Cholesterol [Mass/Vol] 239 mg/dL High 0-200 [facility] ([place]) Comment on above: Result Comment: Chol esterol Reference Interval: Less than 200 Desirable 200-239 Borderline high risk 240 and above High risk Performed By: #### G FR, LIPID, CMP, CBC, ADIFF, ANEU #### [place] [id number] [place], [place] [address] Cholesterol in HDL [Mass/Vol] 46 mg/dL Normal 40-60 [facility] ([place]) Comment on above: Performed By: #### G FR, LIPID, CMP, CBC, ADIFF, ANEU #### [place] [id number] [place], [place] [address] Cholesterol in LDL [Mass/Vol] 154 mg/dL High 0-130 [facility] ([place]) Comment on above: Performed By: #### G FR, LIPID, CMP, CBC, ADIFF, ANEU #### [place] [address] [place], [place] [address] Triglyceride [Mass/Vol] 195 mg/dL High 0-150 [facility] ([place]) Comment on above: Result Comment: Trig lyceride Reference Interval: Less than 150 Normal 150-199 Borderline high risk 200-499 High risk 500 or higher Very high risk Performed By: #### G FR, LIPID, CMP, CBC, ADIFF, ANEU #### [place] [id number] [place], [place] [address] LABORATORYOrdered By: Lani Orourke on 06-23-2022 Albumin BCP dye [Mass/Vol] 3.8 G/dL Invalid Interpretation Code 3.4 - 4.8 G/dL AO ADM SS Albumin/Globulin [Mass ratio] 1.1 {ratio} Invalid Interpretation Code 1.1 - 2.5 ratio AO ADM SS ALP [Catalytic activity/Vol] 102 U/L Invalid Interpretation Code 40 - 135 U/L AO ADM SS ALT With P-5'-P [Catalytic activity/Vol] 25 U/L Invalid Interpretation Code 14 - 59 U/L AO ADM SS AST With P-5'-P [Catalytic activity/Vol] 14 U/L Invalid Interpretation Code 10 - 40 U/L AO ADM SS Bilirubin [Mass/Vol] 0.9 mg/dL Invalid Interpretation Code 0.2 - 1.0 mg/dL AO ADM SS Calcium [Mass/Vol] 9.5 mg/dL Invalid Interpretation Code 8.4 - 10.2 mg/dL AO ADM SS Chloride [Moles/Vol] 107 mmol/L Invalid Interpretation Code 98 - 107 mmol/L AO ADM SS Cholesterol [Mass/Vol] 216 mg/dL Invalid Interpretation Code 0 - 200 mg/dL AO ADM SS Cholesterol in HDL [Mass/Vol] 39 mg/dL Invalid Interpretation Code 40 - 60 mg/dL AO ADM SS Cholesterol in LDL [Mass/Vol] 116 mg/dL Invalid Interpretation Code 0 - 130 mg/dL AO ADM SS CO2 [Moles/Vol] 29 mmol/L Invalid Interpretation Code 23 - 31 mmol/L AO ADM SS Creatinine [Mass/Vol] 0.63 mg/dL Invalid Interpretation Code 0.55 - 1.02 mg/dL AO ADM SS Electrolyte Balance 9.0 mEq/L Invalid Interpretation Code 4.0 - 15.0 mEq/L AO ADM SS Globulin 3.6 G/dL Invalid Interpretation Code AO ADM SS Glucose [Mass/Vol] 114 mg/dL Invalid Interpretation Code 80 - 115 mg/dL AO ADM SS Potassium [Moles/Vol] 4.7 mmol/L Invalid Interpretation Code 3.5 - 5.1 mmol/L AO ADM SS Protein [Mass/Vol] 7.4 G/dL Invalid Interpretation Code 6.4 - 8.2 G/dL AO ADM SS Sodium [Moles/Vol] 145 mmol/L Invalid Interpretation Code 136 - 145 mmol/L AO ADM SS Triglyceride [Mass/Vol] 307 mg/dL Invalid Interpretation Code 0 - 150 mg/dL AO ADM SS TSH Qn 1.07 m[IU]/L Invalid Interpretation Code 0.36 - 3.74 mcIU/mL AO ADM SS Urea nitrogen [Mass/Vol] 12 mg/dL Invalid Interpretation Code 7 - 18 mg/dL AO ADM SS Urea nitrogen/Creatinine [Mass ratio] 19 ratio Invalid Interpretation Code 7 - 27 ratio AO ADM SS LABORATORYOrdered By: Maria Fernanda Srinviasan on 06-23-2022 Basophil, Absolute 0.0 103/mcL Invalid Interpretation Code 0.0 - 0.2 10^3/mcL AO Workflow SS Basophils/100 WBC (Bld) 0.6 % Invalid Interpretation Code 0.0 - 2.5 % AO Workflow SS Eosinophil, Absolute 0.3 103/mcL Invalid Interpretation Code 0.0 - 0.4 10^3/mcL AO Workflow SS Eosinophils/100 WBC (Bld) 4.4 % Invalid Interpretation Code 0.0 - 7.0 % AO Workflow SS Erythrocyte distribution width (RBC) [Ratio] 13.0 % Invalid Interpretation Code 11.5 - 14.5 % AO Workflow SS Hematocrit (Bld) [Volume fraction] 39.3 % Invalid Interpretation Code 37.0 - 47.0 % AO Workflow SS Hemoglobin (Bld) [Mass/Vol] 13.3 G/dL Invalid Interpretation Code 12.0 - 16.0 G/dL AO Workflow SS Lymphocyte, Absolute 1.8 103/mcL Invalid Interpretation Code 0.8 - 3.9 10^3/mcL AO Workflow SS Lymphocytes/100 WBC (Bld) 25.2 % Invalid Interpretation Code 10.0 - 50.0 % AO Workflow SS MCH (RBC) [Entitic mass] 30.2 pg Invalid Interpretation Code 27.0 - 31.2 pg AO Workflow SS MCHC 33.9 G/dL Invalid Interpretation Code 33.0 - 37.0 G/dL AO Workflow SS MCV (RBC) [Entitic vol] 89.2 fL Invalid Interpretation Code 80.0 - 94.0 fL AO Workflow SS Monocyte, Absolute 0.7 103/mcL Invalid Interpretation Code 0.2 - 1.0 10^3/mcL AO Workflow SS Monocytes/100 WBC (Bld) 10.1 % Invalid Interpretation Code 1.7 - 13.0 % AO Workflow SS Neutrophil, Absolute 4.3 103/mcL Invalid Interpretation Code 2.9 - 6.2 10^3/mcL AO Workflow SS Neutrophils/100 WBC (Bld) 59.7 % Invalid Interpretation Code 37.0 - 80.0 % AO Workflow SS Platelet mean volume (Bld) [Entitic vol] 7.5 fL Invalid Interpretation Code 7.4 - 10.4 fL AO Workflow SS Platelets (Bld) [#/Vol] 291 103/mcL Invalid Interpretation Code 130 - 400 10^3/mcL AO Workflow SS RBC (Bld) [#/Vol] 4.41 106/mcL Invalid Interpretation Code 4.20 - 5.40 10^6/mcL AO Workflow SS WBC (Bld) [#/Vol] 7.3 103/mcL Invalid Interpretation Code 4.6 - 10.8 10^3/mcL AO Workflow SS LABORATORYOrdered By: SYSTEM SYSTEM on 06-23-2022 GFR 115 ml/min/1.73sqm Invalid Interpretation Code AO Chemistry S GFR Non- 95 ml/min/1.73sqm Invalid Interpretation Code AO Chemistry S LABORATORYOrdered By: Codey Mckinnon on 05-31-2021 Basophil, Absolute 0.10 103/mcL Invalid Interpretation Code 0.00 - 0.19 10^3/mcL AO Auto Heme SS Basophils/100 WBC (Bld) 0.6 % Invalid Interpretation Code 0.0 - 2.5 % AO Auto Heme SS Eosinophil, Absolute 0.80 103/mcL Invalid Interpretation Code 0.00 - 0.40 10^3/mcL AO Auto Heme SS Eosinophils/100 WBC (Bld) 8.4 % Invalid Interpretation Code 0.0 - 7.0 % AO Auto Heme SS Erythrocyte distribution width (RBC) [Ratio] 12.9 % Invalid Interpretation Code 11.5 - 14.5 % AO Auto Heme SS Hematocrit (Bld) [Volume fraction] 36.0 % Invalid Interpretation Code 37.0 - 47.0 % AO Auto Heme SS Hemoglobin (Bld) [Mass/Vol] 12.1 G/dL Invalid Interpretation Code 12.0 - 16.0 G/dL AO Auto Heme SS Lymphocyte, Absolute 2.20 103/mcL Invalid Interpretation Code 0.77 - 3.85 10^3/mcL AO Auto Heme SS Lymphocytes/100 WBC (Bld) 21.6 % Invalid Interpretation Code 10.0 - 50.0 % AO Auto Heme SS MCH (RBC) [Entitic mass] 30.9 pg Invalid Interpretation Code 27.0 - 31.2 pg AO Auto Heme SS MCHC (RBC) [Mass/Vol] 33.6 G/dL Invalid Interpretation Code 33.0 - 37.0 G/dL AO Auto Heme SS MCV (RBC) [Entitic vol] 91.9 fL Invalid Interpretation Code 80.0 - 94.0 fL AO Auto Heme SS Monocyte, Absolute 1.00 103/mcL Invalid Interpretation Code 0.15 - 1.00 10^3/mcL AO Auto Heme SS Monocytes/100 WBC (Bld) 10.3 % Invalid Interpretation Code 1.7 - 13.0 % AO Auto Heme SS Neutrophil, Absolute 5.90 103/mcL Invalid Interpretation Code 2.85 - 6.16 10^3/mcL AO Auto Heme SS Neutrophils/100 WBC (Bld) 59.1 % Invalid Interpretation Code 37.0 - 80.0 % AO Auto Heme SS Platelet mean volume (Bld) [Entitic vol] 7.4 fL Invalid Interpretation Code 7.4 - 10.4 fL AO Auto Heme SS Platelets (Bld) [#/Vol] 386 103/mcL Invalid Interpretation Code 130 - 400 10^3/mcL AO Auto Heme SS RBC (Bld) [#/Vol] 3.92 106/mcL Invalid Interpretation Code 4.20 - 5.40 10^6/mcL AO Auto Heme SS WBC (Bld) [#/Vol] 10.00 103/mcL Invalid Interpretation Code 4.60 - 10.80 10^3/mcL AO Auto Heme SS LABORATORYOrdered By: Noemi Maria on 05-26-2021 Basophil, Absolute 0.00 103/mcL Invalid Interpretation Code 0.00 - 0.19 10^3/mcL AO Auto Heme SS Basophils/100 WBC (Bld) 0.2 % Invalid Interpretation Code 0.0 - 2.5 % AO Auto Heme SS Calcium [Mass/Vol] 8.6 mg/dL Invalid Interpretation Code 8.4 - 10.2 mg/dL AO ADM SS Chloride [Moles/Vol] 104 mmol/L Invalid Interpretation Code 98 - 107 mmol/L AO ADM SS CO2 [Moles/Vol] 27 mmol/L Invalid Interpretation Code 23 - 31 mmol/L AO ADM SS Creatinine [Mass/Vol] 0.68 mg/dL Invalid Interpretation Code 0.55 - 1.02 mg/dL AO ADM SS Electrolyte Balance 8.0 mEq/L Invalid Interpretation Code AO ADM SS Eosinophil, Absolute 0.00 103/mcL Invalid Interpretation Code 0.00 - 0.40 10^3/mcL AO Auto Heme SS Eosinophils/100 WBC (Bld) 0.0 % Invalid Interpretation Code 0.0 - 7.0 % AO Auto Heme SS Erythrocyte distribution width (RBC) [Ratio] 12.8 % Invalid Interpretation Code 11.5 - 14.5 % AO Auto Heme SS Glucose [Mass/Vol] 150 mg/dL Invalid Interpretation Code 80 - 115 mg/dL AO ADM SS Hematocrit (Bld) [Volume fraction] 34.4 % Invalid Interpretation Code 37.0 - 47.0 % AO Auto Heme SS Hemoglobin (Bld) [Mass/Vol] 11.7 G/dL Invalid Interpretation Code 12.0 - 16.0 G/dL AO Auto Heme SS Lymphocyte, Absolute 0.90 103/mcL Invalid Interpretation Code 0.77 - 3.85 10^3/mcL AO Auto Heme SS Lymphocytes/100 WBC (Bld) 6.5 % Invalid Interpretation Code 10.0 - 50.0 % AO Auto Heme SS MCH (RBC) [Entitic mass] 31.2 pg Invalid Interpretation Code 27.0 - 31.2 pg AO Auto Heme SS MCHC (RBC) [Mass/Vol] 34.0 G/dL Invalid Interpretation Code 33.0 - 37.0 G/dL AO Auto Heme SS MCV (RBC) [Entitic vol] 91.7 fL Invalid Interpretation Code 80.0 - 94.0 fL AO Auto Heme SS Monocyte, Absolute 1.30 103/mcL Invalid Interpretation Code 0.15 - 1.00 10^3/mcL AO Auto Heme SS Monocytes/100 WBC (Bld) 9.2 % Invalid Interpretation Code 1.7 - 13.0 % AO Auto Heme SS Neutrophil, Absolute 12.30 103/mcL Invalid Interpretation Code 2.85 - 6.16 10^3/mcL AO Auto Heme SS Neutrophils/100 WBC (Bld) 84.1 % Invalid Interpretation Code 37.0 - 80.0 % AO Auto Heme SS Platelet mean volume (Bld) [Entitic vol] 8.3 fL Invalid Interpretation Code 7.4 - 10.4 fL AO Auto Heme SS Platelets (Bld) [#/Vol] 280 103/mcL Invalid Interpretation Code 130 - 400 10^3/mcL AO Auto Heme SS Potassium [Moles/Vol] 5.0 mmol/L Invalid Interpretation Code 3.5 - 5.1 mmol/L AO ADM SS RBC (Bld) [#/Vol] 3.75 106/mcL Invalid Interpretation Code 4.20 - 5.40 10^6/mcL AO Auto Heme SS Sodium [Moles/Vol] 139 mmol/L Invalid Interpretation Code 136 - 145 mmol/L AO ADM SS Urea nitrogen [Mass/Vol] 11 mg/dL Invalid Interpretation Code 7 - 18 mg/dL AO ADM SS Urea nitrogen/Creatinine [Mass ratio] 16 ratio Invalid Interpretation Code 7 - 27 ratio AO ADM SS WBC (Bld) [#/Vol] 14.60 103/mcL Invalid Interpretation Code 4.60 - 10.80 10^3/mcL AO Auto Heme SS LABORATORYOrdered By: SYSTEM SYSTEM on 05-26-2021 GFR 106 ml/min/1.73sqm Invalid Interpretation Code AO Chemistry S GFR Non- 87 ml/min/1.73sqm Invalid Interpretation Code AO Chemistry S Vital Signs Date Time Vital Sign Value Performing Clinician Faci [facility] 05-26-2021 07:59-0400 Body temperature 98.06 [degF] DR CELSO VILLANUEVA MD [facility] 05-26-2021 07:59-0400 Diastolic blood pressure 73 mm[Hg] DR CELSO VILLANUEVA MD [facility] 05-26-2021 07:59-0400 Heart rate 88 /min DR CELSO VILLANUEVA MD [facility] 05-26-2021 07:59-0400 Reason For Taking VItal Signs DR CELSO VILLANUEVA MD [facility] 05-26-2021 07:59-0400 Respiratory rate 18 /min DR CELSO VILLANUEVA MD [facility] 05-26-2021 07:59-0400 Systolic blood pressure 171 mm[Hg] DR CELSO VILLANUEVA MD [facility] 05-26-2021 03:33-0400 Body temperature 98.24 [degF] DR CELSO VILLANUEVA MD [facility] 05-26-2021 03:33-0400 Diastolic blood pressure 60 mm[Hg] DR CELSO VILLANUEVA MD [facility] 05-26-2021 03:33-0400 Heart rate 102 /min DR CELSO VILLANUEVA MD [facility] 05-26-2021 03:33-0400 Respiratory rate 18 /min DR CELSO VILLANUEVA MD [facility] 05-26-2021 03:33-0400 Systolic blood pressure 112 mm[Hg] DR CELSO VILLANUEVA MD [facility] 05-26-2021 00:45-0400 Body temperature 98.06 [degF] DR CELSO VILLANUEVA MD [facility] 05-26-2021 00:45-0400 Diastolic blood pressure 74 mm[Hg] DR CELSO VILLANUEVA MD [facility] 05-26-2021 00:45-0400 Heart rate 108 /min DR CELSO VILLANUEVA MD [facility] 05-26-2021 00:45-0400 Respiratory rate 18 /min DR CELSO VILLANUEVA MD [facility] 05-26-2021 00:45-0400 Systolic blood pressure 143 mm[Hg] DR CELSO VILLANUEVA MD [facility] 05-25-2021 19:20-0400 Heart rate 88 /min DR CELSO VILLANUEVA MD [facility] 05-25-2021 19:20-0400 Mean blood pressure 88 mm[Hg] DR CELSO VILLANUEVA MD [facility] 05-25-2021 18:23-0400 Heart rate 120 /min DR CELSO VILLANUEVA MD [facility] 05-25-2021 18:23-0400 Mean blood pressure 103 mm[Hg] DR CELSO VILLANUEVA MD [facility] 05-25-2021 14:51-0400 Diastolic Blood Pressure NBP [address] CELSO VILLANUEVA MD [facility] 05-25-2021 14:51-0400 Heart rate 109 /min DR CELSO VILLANUEVA MD [facility] 05-25-2021 14:51-0400 Reason For Taking VItal Signs DR CELSO VILLANUEVA MD [facility] 05-25-2021 14:51-0400 Systolic Blood Pressure NBP [address] CELSO VILLANUEVA MD [facility] 05-25-2021 14:48-0400 Body height [address] CELSO VILLANUEVA MD [facility] 05-25-2021 14:48-0400 Body weight 116.[address] CELSO VILLANUEVA MD [facility] 05-25-2021 14:48-0400 Body weight 43.39 kg/m2 DR CELSO VILLANUEVA MD [facility] 05-25-2021 13:52-0400 Body temperature 96.8 [degF] DR CELSO VILLANUEVA MD [facility] 05-25-2021 13:52-0400 Diastolic Blood Pressure NBP [address] CELSO VILLANUEVA MD [facility] 05-25-2021 13:52-0400 Systolic Blood Pressure NBP [address] CELSO VILLANUEVA MD [facility] 05-25-2021 13:45-0400 Diastolic Blood Pressure NBP [address] CELSO VILLANUEVA MD [facility] 05-25-2021 13:45-0400 Systolic Blood Pressure NBP [address] CELSO VILLANUEVA MD [facility] 05-25-2021 11:40-0400 Body temperature 97.34 [degF] DR CELSO VILLANUEVA MD [facility] 05-25-2021 08:10-0400 Body height [address] CELSO VILLANUEVA MD [facility] 05-25-2021 08:10-0400 Body temperature 99.5 [degF] DR CELSO VILLANUEVA MD [facility] 05-25-2021 08:10-0400 Body weight 116.[address] CELSO VILLANUEVA MD [facility] Encounters Encounter Date Encounter Type Care Provider Facility Start: 03-21-2025 ambulatory Viral Gomes [facility] ity:[facility] Start: 02-17-2025 End: 02-17-[address] VIRAL GOMES DO Facility:[facility] Start: 02-17-2025 End: 02-17-[address] VIRAL GOMES DO [facility] Start: 12-27-2023 End: 12-28-2023 ambulatory CARMEN JON DO Facility:[facility] Start: 12-27-2023 End: 12-27-2023 Patient encounter procedure CARMEN JON DO [facility] Start: 12-12-2023 End: 12-13-2023 ambulatory CARMEN JON DO Facility:[facility] Start: 07-26-2022 End: 07-26-2022 Patient encounter procedure JOSE MARTIN REAL SPLITTER OPERATOR-DEVULCANIZER OPERATOR [facility] Start: 06-23-2022 End: 06-23-2022 Patient encounter procedure JOSE MARTIN FARHAN SPLITTER OPERATOR-DEVULCANIZER OPERATOR [facility] Start: 05-31-2021 End: 05-31-2021 Patient encounter procedure FLOYD MORALEZ SPLITTER OPERATOR-DEVULCANIZER OPERATOR [facility] Start: 05-25-2021 End: 05-26-[address] CELSO VILLANUEVA MD [facility] Procedures Date Procedure Procedure Detail Performing Clinician Start: 05-25-2021 Structure of left kn ee (body structure) DR CELSO VILLANUEVA MD Start: 08-14-2012 Cytopathology proced ure, preparation of smear, genital source DR CELSO VILLANUEVA MD Start: 08-14-[address] CELSO VILLANUEVA MD Comment on above: normal Start: 08-14-[address] CELSO VILLANUEVA MD Comment on above: normal Appendectomy DR CELSO Casillas MD Carpal tunnel syndro me (disorder) DR CELSO VILLANUEVA MD Comment on above: rt and lt Cholecystectomy DR CELSO PEREZ MD Deliveries by shereen an (finding) DR CELSO VILLANUEVA MD Comment on above: x3 Finger structure (lynnette dy structure) DR CELSO VILLANUEVA MD Comment on above: 2nd digit rt hand -c hip bone,cyst Ganglion cyst of lef t wrist (disorder) DR CELSO VLILANUEVA MD Hip joint structure (body structure) DR CELSO VILLANUEVA MD Comment on above: lt periformis surger y History of operative procedure on knee CARMEN JON DO Comment on above: right knee replaceme nt 10/28/2021 Immunizations Immunization Date Immunization Notes [facility] tetanus toxoid, redu gali diphtheria toxoid, and acellular pertussis vaccine, adsorbed; Translations: [Boostrix (Tdap)] DR CELSO VILLANUEVA MD [facility] 10-29-2019 Influenza, injectabl e, [place]in [place] Canine Kidney, preservative free, quadrivalent; Translations: [Flucelvax PF Quadrivalent ] DR CELSO VILLANUEVA MD [facility] Payers Date Payer Category Payer Private Health Insurance [id number] 2023 Self-pay [id number] 2023 Medicare [id number] 2022 Medicare [id number] 2022 Private Health Insurance [id number] 1957 Unknown [id number] 1957 Unknown [id number] [id number] 1957 Unknown [id number] [id number] Unknown [id number] [id number] [id number] Unknown [id number] [id number] [id number] Social History Date Type Detail Facility Start: 02-15-2019 End: 02-06-2025 Never smoked tobacco (finding) [facility] Sex Assigned At [facility] Start: 08-09-2006 Sex Female (finding) [facility] Evaluation + Plan note 02-06-2025 Radiology Note Date & Type Note Facility 02-06-2025 Evaluation + Plan note Future Scheduled TestsCT Coronary Calcium Score w/o Contrast 02/06/25 [facility] Hospital Discharge instructions 05-26-2021 Note Date & Type Note Facility 05-26-2021 Hospital Discharg e instructions Patient Education 05/26/2021 06:43:12 5 - [facility] Post-op Instruction 03/2017 (15608) [facility] Post-operative Instructions PLEASE FOLLOW [facility] POST-OP INSTRUCTIONS GIVEN WATCH FOR SIGNS OF INFECTION: call the office ([phone]) if experencing any of the following: (Usually appears 36-48 hours after surgery) Increased temperature (101 degrees Fahrenheit or higher) Redness or swelling Increased uncontrolled pain Foul odor or drainage Calf discomfort Significant swelling Or if having any chest pain, shortness of breath, or difficulty breathing or swallowing call the office or go the nearest Emergency Room. If you have any questions, please call your doctor at the number listed on your follow up instructions. Form: 338A (13024) R: 12/18 Follow Up Care 04/30/2021 07:33:36 With:[facility] Address: [address] [place] [address]- [phone] When:05/27/2021 11:00:00 Comments:This is your first physical therapy appointment. Follow-up as scheduled. With:DEON MORRIS PA-C, Orthopedic, Orthopedic Address: [facility] [address] [place] [id number]- When:06/07/2021 09:30:00 Comments:This is your post-op appointment. Follow-up as scheduled. [facility] Evaluation + Plan note Note Date & Type Note Facility Evaluation + Plan note No data available for this section [facility] Evaluation + Plan note Note Date & Type Note Facility Evaluation + Plan note Future Appointments Appointment Date:07/14/2022 01:00:00 PM Scheduled Provider:CARMEN JON DO Location:[facility] Appointment Type:PC OV Follow Up [facility] Evaluation + Plan note Note Date & Type Note Facility Evaluation + Plan note Future Appointments Appointment Date:08/02/2022 01:00:00 PM Scheduled Provider:CARMEN JON DO Location:[facility] Appointment Type:PC OV Follow Up [facility] Hospital Discharge instructions Note Date & Type Note Facility Hospital Discharge instructions No data available for this section [facility] Note Note Date & Type Note Facility Note EJ LACEY MD: SIGN, VERIFY Event Display: Echocardiogram Stress - CV Authored Date: [id number] [facility] Progress note Note Date & Type Note Facility Progress note No data available for this section [facility] Summary Purpose Family History No Family History Records Found Advance Directives No Advanced Directives Records FoundNo Advanced Directives Records FoundNo Advanced Directives Records Found Additional Source Comments Care Team (unrecognized sect ion and content) Care Team Personnel Name: Jon Tovar Clerjourdan Hurst PT Position: P3 Scheduling - Maintenance Engineer Advanced Member Role: Other Name: CARMEN JON DO Position: P4 Physician - Primary Care Member Role: Primary Care Physician Address: Address: [address] [place] [address] Care Team Related Persons Name: MIKE ARMENDARIZ Address: Home [id number] [place], [place] [id number] [place] [address] Care Team Personnel Name: Jon Tovar PT Position: P3 Scheduling - Maintenance Engineer Advanced Member Role: Other Name: CARMEN JON DO Position: P4 Physician - Primary Care Member Role: Primary Care Physician Address: Address: [address] [place] [address] Care Team Related Persons Name: MIKE ARMENDARIZ Address: Home [address] [place], [place] [id number] [place] Patient Care team informatio n (unrecognized section and content) Care Team Personnel Name: Jon Tovarrjourdan Veleza PT Position: P3 Scheduling - Maintenance Engineer Advanced Member Role: Other Name: CARMEN JON DO Position: P4 Physician - Primary Care Member Role: Primary Care Physician Address: Address: [address] [place] [address] [facility] [address] Care Team Related Persons Name: MIKE ARMENDARIZ Address: Home [address] [place], [place] [id number] [place] Care Team Personnel Name: Jon Tovarrk Natali PT Position: P3 Scheduling - Maintenance Engineer Advanced Member Role: Other Name: ELISEOVIRAL BROWNE Position: P4 Physician - Primary Care Member Role: Primary Care Physician Address: [address] [place] [id number] Telecom: Care Team Related Persons Name: MIKE ARMENDARIZ INFORMATION SOURCE (unrecogn ized section and content) DATE CREATED AUTHOR 01/05/2024 [facility] ([place] DATE CREATED AUTHOR AUTHOR'S ORGANIZ ATION 02/20/2025 [facility] DATE CREATED AUTHOR AUTHOR'S ORGANIZ ATION 03/18/2025 [facility] FOR RECORDS PERTAINING TO PATIENTS WHO ARE OR HAVE BEEN ENROLLED IN A CHEMICAL DEPENDENCY/SUBSTANCEABUSE PROGRAM, SOME INFORMATION MAY BE OMITTED. This clinical summary was aggregated from multiple sources. Caution should be exercised in using it in the provision of clinical care. This summary normalizes information from multiple sources, and as a consequence, information in this document may materially change the coding, format and clinical context of patient data. In addition, data may be omitted in some cases. CLINICAL DECISIONS SHOULD BE BASED ON THE PRIMARY CLINICAL RECORDS. [email or web address] [facility]. provides no warranty or guarantee of the accuracy or completeness of information in this document.
== END | disposition home or self-care (01) ==
LOC: CVS 07:38
DX: R01.1 Cardiac murmur, unspecified (principal)
CPT/HCPCS: 93306